=== PATIENT | female | born 1995 | race African-American/Black ===

== ENCOUNTER 2025-04-20 10:39 | Inpatient (IN) | payer OTHER, SELFPAY ==
[2025-04-15 14:55] VITALS: BMI 39.9
[~2025-04-20 10:39] MED LIST: Bupivacaine 0.25% HCL 30 ML VIAL ONE; Bupivacaine HCl 0.5%/Epinephrine 1:200,000/PF 30 ml Vial ONE
[2025-04-20] MEDS ORDERED: Ondansetron PF 4 MG/2 ML Vial IVP PRN (22:53)
[2025-04-20] MEDS ORDERED: Diphenoxylate HCl/Atropine Tablet PO PRN ×2 (22:53)
[2025-04-20] MEDS ORDERED: Tranexamic Acid 1,000 MG/10 ML VIAL IVP PRN (22:53)
[2025-04-20] MEDS ORDERED: Acetaminophen 500 MG TAB PO PRN (22:53)
[2025-04-20] MEDS ORDERED: Carboprost 250 MCG/ML AMP IM PRN (22:53)
[2025-04-20] MEDS ORDERED: hydrALAZINE 20 MG/ML VIAL SLOW IVP PRN (22:53)
[2025-04-20] MEDS ORDERED: Lidocaine 1% (PF) 30 ML VIAL SC PRN (22:53)
[2025-04-20] MEDS ORDERED: Oxytocin 30 units/NS 500 ML 500 ML IV SCH (23:00)
[2025-04-20 23:04] LABS: Hematocrit 29.6 % (34.9-44.5); Hemoglobin 9.6 g/dL (12.0-15.5); Mean Corpuscular Hemoglobin 25.2 pg (27.0-33.0); Mean Corpuscular Volume 77.7 fL (81.6-98.3); Platelet Count 325 10x3/uL (150-450); Red Blood Cell (RBC) Count 3.81 10x6/uL (3.90-5.03); White Blood Cell (WBC) Count 9.25 10x3/uL (3.5-10.5)
[2025-04-20 23:34] LABS: Syphilis Antibody Index 0.16 S/CO (<1.00 Non-Reactive)
[2025-04-20 23:35] LABS: Hep B Surf Ag - L&D Non-Reactive S/CO (NonReactive)
[2025-04-21] MEDS: Dinoprostone 10 MG Suppository VAG SCH (00:09)
[2025-04-21] MEDS: fentaNYL/Ropivacaine Epidural 100 ML ONE (04:45)
[2025-04-21] MEDS ORDERED: diphenhydrAMINE 50 MG/ML VIAL IVP PRN (04:50)
[2025-04-21] MEDS ORDERED: Ondansetron PF 4 MG/2 ML Vial IVP PRN (04:50)
[2025-04-21] MEDS ORDERED: Communication Order-Pharmacy FS SCH (05:00)
[2025-04-21] MEDS: Acetaminophen 325 MG TAB PO PRN (12:30)
[2025-04-21] MEDS: Oxytocin 30 units/NS 500 ML 500 ML IV SCH (12:45)
[2025-04-21] MEDS: fentaNYL 2 mcg/Ropivacaine 0.2% Epidural 100 ML CADD EPIDURAL SCH (14:42)
[2025-04-21] MEDS ORDERED: Preparation H Ointment 28 GM TUBE PR PRN (15:21)
[2025-04-21] MEDS ORDERED: Lanolin Ointment 7 GM TUBE TOP PRN (15:21)
[2025-04-21] MEDS ORDERED: Bisacodyl 10 MG SUPP PR PRN (15:21)
[2025-04-21] MEDS ORDERED: diphenhydrAMINE 25 MG CAP PO PRN (15:21)
[2025-04-21] MEDS ORDERED: Benzocaine-Menthol 82.5 ML CAN TOP PRN (15:21)
[2025-04-21] MEDS ORDERED: Milk Of Magnesia 30 ML UDCUP PO PRN (15:21)
[2025-04-21] MEDS ORDERED: hydrALAZINE 20 MG/ML VIAL SLOW IVP PRN (15:21)
[2025-04-21] MEDS: Ibuprofen 800 MG TAB PO SCH (22:08)
[2025-04-21] MEDS: Ferrous Sulfate 325 MG TAB PO SCH (22:51)
[2025-04-22] MEDS ORDERED: HYDROcodone/Acetaminophen 5/325 mg Tablet PO PRN (05:50)
[2025-04-22 12:02] VITALS: BP 128/60; TEMP 98.1
== END 2025-04-22 17:00 | disposition home or self-care (01) | DRG 807 ==
LOC: CSHLD 21:20 → CSHPP 04-21 17:45
PROVIDERS: ADMIT Obstetrics & Gynecology; ATTEND Family Medicine
PROC: 10E0XZZ Delivery of Products of Conception, External Approach (ICD-10-PCS; principal; 2025-04-20)
PROC: 10907ZC Drainage of Amniotic Fluid, Therapeutic from Products of Conception, Via Natural or Artificial Opening (ICD-10-PCS; 2025-04-20)
PROC: 4A1HXCZ Monitoring of Products of Conception, Cardiac Rate, External Approach (ICD-10-PCS; 2025-04-20)
PROC: 3E0234Z Introduction of Serum, Toxoid and Vaccine into Muscle, Percutaneous Approach (ICD-10-PCS; 2025-04-20)
DX: O99.02 Anemia complicating childbirth (principal); Z37.0 Single live birth; Z3A.39 39 weeks gestation of pregnancy; Z23 Encounter for immunization
CPT/HCPCS: 36415; 51702; 85027; 85461; 86780; 86850; 86900; 86901; 87340; 90384; 96372; J0665; J2590

== ENCOUNTER 2025-04-26 19:25 | Emergency (ER) | payer OTHER | END 2025-04-26 21:03 | disposition home or self-care (01) | LOC: CSHERS 19:25 | DX: O99.893 Other specified diseases and conditions complicating puerperium (principal); R60.0 Localized edema | CPT/HCPCS: 93005; 93970 ==